=== PATIENT | male | born 1955 | race Caucasian/White ===

== ENCOUNTER 2017-11-30 16:46 | Emergency (ER) | payer OTHER ==
[~2017-11-30] VITALS: Wt 97.5 kg
[~2017-11-30 16:46] MED LIST: 'PARAFON FORTE500 M1 PO; NAPROSYN500 MG PO
[2017-11-30] MEDS ORDERED: LIPITOR20 MG PO (17:24)
[2017-11-30 17:25] LABS: BASO % 0.5 % (0.0-1.0); EOS # 0.2 10*3/uL (0.0-0.4); HEMATOCRIT 54.8 % (42.0-52.0); LYMPH # 1.5 10*3/uL (1.3-4.4); LYMPH % 17.5 % (27.0-41.0); MEAN CELL VOLUME 91.5 fl (80.0-94.0); MEAN CORPUSCULAR HGB 30.1 pg (27.0-31.0); MEAN CORPUSCULAR HGB CONC 32.8 g/dl (33.0-37.0); MEAN PLATELET VOLUME 10.2 fl (9.6-12.3); MONO % 11.8 % (3.0-9.0); NEUT # 5.7 10*3/uL (2.3-7.9); NEUT % 67.8 % (47.0-73.0); PLATELET COUNT AUTOMATED 177 10*3/uL (130-400); RED BLOOD COUNT 5.99 10*6/uL (4.50-5.90); RED CELL DISTRI WIDTH 14.5 % (0-14.5); WHITE BLOOD COUNT 8.4 10*3/uL (4.8-10.8)
[2017-11-30] MEDS ORDERED: SPIRIVA RESPIMAT4 GM INH (17:25)
[2017-11-30] MEDS ORDERED: VIAGRA50 MG PO (17:25)
[2017-11-30] MEDS ORDERED: CYMBALTA60 MG PO (17:25)
[2017-11-30] MEDS ORDERED: BUSPAR5 MG PO (17:26)
[2017-11-30 17:40] LABS: TROPONIN I 0.018 ng/ml (<0.045)
[2017-11-30 18:11] LABS: ALBUMIN 3.7 gm/dl (3.1-4.5); ALKALINE PHOSPHATASE 74 U/L (45-117); BUN 19 mg/dl (7-24); CHLORIDE 98 mmol/L (98-107); CREATININE 0.83 mg/dL (0.70-1.30); POTASSIUM 4.6 mmol/L (3.5-5.1); SGOT/AST 20 IU/L (3-35); SGPT/ALT 26 U/L (12-78); SODIUM 139 mmol/L (136-145); TOTAL PROTEIN 6.8 gm/dL (6.4-8.2)
== END 2017-11-30 18:27 | disposition left against medical advice (07) ==
LOC: ED 16:46
PROVIDERS: Emergency Medicine
DX: G89.29 Other chronic pain (principal); M54.9 Dorsalgia, unspecified; I49.9 Cardiac arrhythmia, unspecified; R55 Syncope and collapse; J44.9 Chronic obstructive pulmonary disease, unspecified; F17.200 Nicotine dependence, unspecified, uncomplicated; Z88.0 Allergy status to penicillin; Z79.899 Other long term (current) drug therapy

== ENCOUNTER 2018-03-18 14:46 | Inpatient (IN) | payer OTHER ==
[~2018-03-18] VITALS: Ht 175.3 cm; Wt 103.4 kg
[2018-03-18] VITALS (9 sets, daily range): BP systolic 100–136; BP diastolic 50–78
--- NOTE | ~2018-03-18 | PR ---
[place], [place] PROGRESS NOTE NAME: SAADIA COSME UNIT #: [id number] ROOM: 518 DOCTOR: GENARO WEISS MD BIRTHDATE: [birth year] DOS: 03/21/2018 SUBJECTIVE: The patient was seen at his bedside today 03/21/2018 for followup of acute respiratory failure and pulmonary emboli with elevated troponin levels. He states that he feels well and is ready to go home, but he is still showing signs of respiratory failure. Blood gas obtained on 03/19/2018 showed a pCO2 of 62 with a pH of 7.37 indicating chronic respiratory acidosis with compensation. He denies any chest pain now and is breathing easily with oxygen supplementation. PHYSICAL EXAMINATION: VITAL SIGNS: Today, his pulse is 94 and regular, blood pressure is 147/90. He is afebrile. NECK: Supple. I did not see any jugular distention. Carotids are full. LUNGS: Respirations are unlabored at rest. He has decreased breath sounds at the bases with a few crackles at the right base. He has no presacral edema. HEART: His heart has a regular rhythm with an S4 gallop. The PMI could not be felt. ABDOMEN: Obese, but otherwise benign. EXTREMITIES: Showed 1+ edema bilaterally. He does have venous stasis changes bilaterally as well. IMPRESSION: 1. Bilateral pulmonary emboli. The patient is very sedentary and this is probably the cause for this. He may also have a coagulopathy. 2. Chronic obstructive pulmonary disease with respiratory failure. 3. Ongoing cigarette abuse. 4. Venous stasis disease of the legs. PLAN: We will review his echocardiogram when it is available later today and make further recommendations at that time. He may require diuresis. He does appear to be in somewhat of a positive fluid balance. Because of his clinical appearance, we will give him little Lasix today and continue to follow his examination. I thank the hospitalist physicians for asking our advice regarding his care. [place], [place] PROGRESS NOTE NAME: SAADIA COSME UNIT #: [id number] ROOM: 518 DOCTOR: GENARO WEISS MD BIRTHDATE: [birth year] EGNARO WEISS MD CM:PNTRANS [id number] GENARO WEISS MD 03/21/18 1030 interface
--- NOTE | ~2018-03-18 | CON ---
[place], [place] REPORT OF CONSULTATION NAME: SAADIA COSME [facility] #: [id number] UNIT #: [id number] ROOM: 518 DOCTOR: RYLIE KNIGHT MD BIRTHDATE: [birth year] DOS: 03/19/2018 PULMONARY CONSULTATION AND EVALUATION AND MANAGEMENT CONSULTATION REQUESTED BY: Hospitalist Services. REASON FOR CONSULTATION: To assess the patient for acute respiratory symptom. HISTORY OF PRESENT ILLNESS: This is a 62-year-old white male who presented to the Emergency Room as the patient has been sent to the hospital from the [facility]. He was noted with oxygen desaturation with saturation 83%, brought to the hospital by the EMS. The patient has been noted with chest congestion, coughing, and wheezing with current symptom. Symptoms have been noted for the past several days and now resolved. He does not have any symptoms of chest pain, which was noted acute. He has been noted with ulcer on his foot, which has been also treated. The patient has been initially admitted to the Intensive Care Unit, later on transferred today to the medical floor. REVIEW OF SYSTEMS: CONSTITUTIONAL: Fatigue and tiredness noted and symptoms of fever or chills. EYES: Denies any burning, redness, or tenderness. EARS, NOSE, THROAT: Denies sore throat, hoarseness, otalgia, postnasal drainage. CARDIOVASCULAR: Denies anginal pain, edema, pain in lower extremity. GASTROINTESTINAL: Dysphagia, nausea, vomiting, diarrhea, abdominal pain, hematemesis, melena, or hematochezia. GENITOURINARY: No dysuria, suprapubic pain, hematuria. MUSCULOSKELETAL: No acute joint pain, redness, or tenderness. CENTRAL NERVOUS SYSTEM: Denies diplopia or syncopal episodes. Remaining systems were reviewed, they were noted all negative. PAST MEDICAL HISTORY: Reported as history of; 2. COPD. 3. Chronic heavy nicotine abuse up to 4 packs, currently smoking about one and half pack of cigarettes per day. 4. Moderate obesity. 5. Intervertebral disk disease for the patient and back pain. 6. History of syncopal episode previously. 7. Left-sided sciatic pain. 8. Ankle ulcer for the patient in the left side as well for several weeks. SOCIAL HISTORY: The patient is , has no children, lives at home. Smoking started at teenager 4 pack of cigarettes per day. Currently smoking one and half pack of cigarettes per day. Denies history of alcohol use or any illicit drugs. PAST SURGICAL HISTORY: Reported surgery of the left knee. FAMILY HISTORY: Unknown. [place], [place] REPORT OF CONSULTATION NAME: SAADIA COSME UNIT #: [id number] ROOM: 518 DOCTOR: CHRISSIE KNIGHT MDM BIRTHDATE: [birth year] HOME MEDICATIONS: Listed use of amitriptyline, aspirin, Lipitor, Cymbalta, Viagra, Spiriva Respimat, and other p.r.n. medications, home use. DRUG ALLERGY HISTORY: ALLERGY TO PENICILLINS. PHYSICAL EXAMINATION: GENERAL: This is a 62-year-old male who was currently noted awake and alert without acute distress. Height of 5 feet 9 inches, weight of 217 pounds, BMI 32. VITAL SIGNS: Normal temperature since admission last 24 hours, respiratory rate 16 to 24, heart rate 82 to 77, blood pressure 130/92-103/65. Pulse oxygen saturation of the patient was noted on a 10-day tried for the nasal cannula 95% at rest on room air at 83% saturation of oxygen. HEENT: Examination shows head was atraumatic. Eyes nonicterus. NECK: Supple. CARDIOVASCULAR: S1, S2 is audible. LUNGS: Noted with expiratory wheezing at the present time. There were no crackles. ABDOMEN: Soft, nontender. Moderate obesity. EXTREMITIES: The patient noted with edema. Visible skin, no lesions or rashes. Ulcer of the left ankle was noted previously. CENTRAL NERVOUS SYSTEM: Cranial nerves 2-12 intact. MUSCULOSKELETAL: Without any acute deformities. LABORATORY DATA: The CBC for this patient that was done on admission for the patient on 03/18/2018 essentially noted as normal CBC. The CMP of the patient that was done on 03/18/2018 at admission glucose 122, BUN and creatinine normal, sodium 135, and troponin 0.353. 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 CBC done this morning remains normal. ESR normal today at 4.0. Arterial blood gas done last evening, pH of 7.35, pCO2 of 62, and pO2 of 111. BMP this morning, BUN normal and creatinine was normal. CO2 36 and chloride of 96. PT/PTT were normal. Arterial blood gas repeated this morning, pH of 7.37, pCO2 64, 8 liters high flow nasal cannula. CBC this morning noted with hemoglobin 16.6 and 55.3, and platelet count 222,000. X-ray of the left ankle was also done for the patient noted no acute fracture. The CTA of the chest does not show evidence of pulmonary embolism. The patient was noted with area of scarring and basilar small atelectasis of the lower lungs bilaterally. There were no visible pulmonary nodules. CT scan, in addition, was also reported with findings of old fracture in the right 11th rib and acute fracture was noted at the right posterior portion of the 11th rib. The CT of the chest does show evidence of bilateral small pulmonary embolism. IMPRESSION: 1. Noted with severe acute hypoxic respiratory failure as a result of acute bilateral pulmonary embolism. 2. Ununited right 11th rib fracture, significance unknown. The patient does have symptoms of chest pain. [place], [place] REPORT OF CONSULTATION NAME: SAADIA COSME Serafin UNIT #: [id number] ROOM: 518 DOCTOR: MARIA DE JESUS KELLOGG MD,[facility] BIRTHDATE: [birth year] 3. Chronic obesity as well. 4. Acute exacerbation of chronic obstructive pulmonary disease as well was noted with concomitant current symptoms. 5. History of long-term tobacco use. 6. Evidence of basilar area of atelectasis, pneumonia cannot be completely excluded, but appeared to be less likely. 7. Elevation of hemoglobin and hematocrit, suggestive of probably chronic hypoxic component for the patient with polycythemia secondary to chronic hypoxia. 8. Strong suspicion of obstructive sleep apnea disorder. Current body habitus of the patient and polycythemia would be considered and excluded. 9. The patient was also noted with long-term ulcer, which has been currently investigated by the podiatry services. PLAN OF MANAGEMENT: The patient had been getting Solu-Medrol 40 mg q. 8 hours, that will be continued. Bronchodilator will be continued. Therapeutic Lovenox has been used for this patient 100 mg b.i.d. for the management of acute pulmonary embolism. BiPAP was also ordered for the patient be used p.r.n. during the day and continue at nighttime. Oxygen supplementation at that time for the patient to be given to maintain pulse ox at 92% greater. Bronchodilators will be given every 4 hours. The patient was also ordered the nicotine placement patches as well to overcome the nicotine withdrawal. Sputum for Gram stain, culture, could be obtained as well. Switching the patient with additional anticoagulation in future would be decided upon stability and improvement in the respiratory failure at this time. Subcutaneous Lovenox could be continued. Other supportive therapy and plan of management already in progress to be continued. Usual care. Titrate oxygen supplementation and maintain pulse ox saturation 92% or greater. Supportive care, other therapy, and plan of management and treatments. Tobacco cessation has been discussed with the patient in detail. The patient has been taking Spiriva inhaler from home, which were noted nonformulary, at this time not available in the hospital. He will be ordered Dulera 200 mcg as 2 inhalations b.i.d. instead. The dose of Solu-Medrol will be gradually decreased based on progression of the illness. The hypercoagulability workup will be ordered as well. Thanks for allowing me to participate in the care of this patient. RYLIE PRETTY MD CM:CONSTR:REPORT OF CONSULTATION 2149 03/20/18 0435 interface
--- NOTE | ~2018-03-18 | PR ---
[place], [place] PROGRESS NOTE [id number] UNIT #: [id number] ROOM: 518 DOCTOR: MARIA DE JESUS KELLOGG MD,RYLIE BIRTHDATE: [birth year] DOS: 03/24/2018 SUBJECTIVE: He has been noted comfortable sitting on the chair this morning. He has used the BiPAP last night. Denies symptoms of chest pain or any hemoptysis. OBJECTIVE: VITAL SIGNS: For the patient, which has been recorded showed the temperature noted normal, respiratory rate 20, heart rate 83, blood pressure ____. Pulse oxygen saturation on 5 L nasal cannula 90-94% saturation. HEENT: Chronic obesity. Head was atraumatic. Eyes nonicterus. CARDIOVASCULAR: S1, S2 is audible. LUNGS: The patient was noted without any wheezing or crackles. The breaths are noted mildly decreased bilaterally. ABDOMEN: Soft and nontender with obesity. EXTREMITIES: Without any acute edema. IMPRESSION: 1. The patient with gradual slow resolution improvement in the acute severe hypoxic respiratory failure. 2. Acute exacerbation of chronic obstructive pulmonary disease and pulmonary embolism. 3. Known obstructive sleep apnea disorder use of CPAP or BiPAP at home. PLAN OF MANAGEMENT: Reduce the Solu-Medrol dose to 40 mg daily. Titrate oxygen supplementation to maintain saturation of 90% or greater. Usual care. Other supportive therapy, plan of management, and care plan. Additional treatment changes to be made for this patient based on the progression of the illness. RYLIE PRETTY MD CM:PNTRANS [id number] [id number] RYLIE KELLOGG MD 03/24/18 1527 interface
--- NOTE | ~2018-03-18 | PR ---
[place], [place] PROGRESS NOTE NAME: SAADIA COSME [facility] #: [id number] UNIT #: [id number] ROOM: 518 DOCTOR: GENARO WEISS MD BIRTHDATE: [birth year] DOS: 03/20/2018 SUBJECTIVE: The patient was seen at his bedside today 03/20/2018 for followup of his dyspnea and chest pain. He presented to the hospital with hypoxemia and was found to have an elevated troponin level at 0.353. In addition, however, he did have an elevated D-dimer, lower extremity venous ultrasound was negative, but CAT scan did show bilateral pulmonary emboli. He is being treated with Lovenox in full dose for management of his pulmonary emboli. The patient states that he is breathing better today and is feeling better. He is anxious to move around more and would like to take a shower. He denies any lightheadedness or syncope. Denies any orthopnea or PND. PHYSICAL EXAMINATION: VITAL SIGNS: Pulse is 84 and regular, blood pressure 128/72. He is afebrile. He weighs 98.5 kilograms. HEENT: Normocephalic and atraumatic. Extraocular muscles are intact. Sclerae are clear. Pupils are equal, round and react to light. The oral mucosa is moist. Tongue is midline. NECK: Supple. He has no jugular distention. Carotids are full. I heard no bruits. He had no neck or supraclavicular masses. LUNGS: Respirations are unlabored. His chest is clear to auscultation and percussion. He had no presacral edema or chest wall tenderness. HEART: Had a regular rhythm with an S4 gallop, but no S3. ABDOMEN: Soft and normally active. EXTREMITIES: Showed venous stasis changes, but no edema. IMPRESSION: 1. Bilateral pulmonary emboli. The patient is very sedentary and this is probably the cause for his emboli. 2. Chronic obstructive pulmonary disease. 3. Ongoing cigarette abuse. 4. Venous stasis disease of the legs. PLAN: No other cardiac management changes are indicated at this time. An echocardiogram is scheduled for tomorrow and we will review that when it is available. Further recommendations may be forthcoming depending upon the results of the echo. I thank the hospitalist physicians for asking our advice regarding his care. From my perspective, he may shower and may remove his monitor to do so. [place], [place] PROGRESS NOTE NAME: SAADIA COSME Serafin UNIT #: [id number] ROOM: 518 DOCTOR: GENARO WEISS MD BIRTHDATE: [birth year] GENARO WEISS MD CM:PNTRANS 22 [phone] GENARO WEISS MD 03/20/181932 interface
--- NOTE | ~2018-03-18 | CON ---
[place], [place] REPORT OF CON[facility]ULTATION [id number] UN[facility] #: [id number] ROOM: 518 DOCTOR: NGOZI SIU DPM BIRTHDATE: [birth year] DOS: 03/19/2018 SUBJECTIVE: The patient is a 62-year-old male with chief complaint of an ulcer on the inside of the left ankle, which has been present for several weeks. The patient has had previous cellulitis, redness of the legs, which he is treated for over a year with topical creams. PAST MEDICAL HISTORY: Arrhythmia, chronic back pain, COPD with hypoxia, left-sided sciatica, syncope episode, tobacco abuse counseling. PAST SURGICAL HISTORY: History of left knee surgery. SOCIAL HISTORY: Smoking a pack of cigarettes daily times 15 years. Denies illicit drug use or alcohol. ALLERGIES: PENICILLIN. PHYSICAL EXAMINATION: EXTREMITIES: Lower extremity examination: Pedal pulses diminished bilateral, decreased hair growth bilateral, venous insufficiency bilateral with venous stasis dermatitis noted. There is an ulceration to the medial left ankle, which is full thickness approximately 1 cm diameter. There are no signs of infection or sinus tract, appears consistent with venous ulceration. The patient had a venous Doppler, which was negative for DVT, bilateral. There is a Mcmahon cyst noted right side. ASSESSMENT: Ulceration medial left ankle, venous insufficiency bilateral lower extremity, peripheral vascular disease. PLAN: Evaluation and management. Ordered Bactroban and gauze dressing daily. Ordered arterial Doppler bilateral lower extremity. Also ordered radiographs of the left ankle, three views and the patient will be seen after the testing has been performed. NGOZI SIU DPM CM:CONSTR:REPORT OF CONSULTATION 1132 03/19/18 1235 interface
--- NOTE | ~2018-03-18 | PR ---
[place], [place] PROGRESS NOTE NAME: SAADIA COSME [facility] #: [id number] UNIT #: [id number] ROOM: 518 DOCTOR: LALO ABDUL DPM BIRTHDATE: [birth year] DOS: 03/21/2018 SUBJECTIVE: The patient is seen today for followup of ulceration of his left medial ankle. He states he is feeling well. He thinks he is doing much better. He states the redness that he had on his has gone and really has no complaints at this time. OBJECTIVE: Neurovascular status is unchanged. Diminished pedal pulses are seen. Medial side of the left ankle area has a dry area of dry skin with minimal open area. No erythema, drainage or malodor. No tenderness noted to palpation. Overall appears to be resolving nicely at this time. ASSESSMENT: Improving ulcer of left medial ankle, edema bilaterally, venous insufficiencies. PLAN: I am continuing with local wound care. The wound has almost completely healed. He is doing well at this time. We will follow him up tomorrow if still in the hospital. LALO ABDUL DPM CM:BRAEDEN [id number] [id number] LALO ABDUL DPM 03/21/18 1248 interface
--- NOTE | ~2018-03-18 | CON ---
[place], [place] REPORT OF CONSULTATION NAME: SAADIA COSME [facility] #: [id number] UNIT #: [id number] ROOM: 518 DOCTOR: GENARO WEISS MD BIRTHDATE: [birth year] DOS: 03/19/2018 REASON FOR CONSULTATION: Elevated troponin. HISTORY OF PRESENT ILLNESS: The patient is a 62-year-old man who presented to the hospital after being seen at the [facility]. He was complaining of dyspnea and found to be hypoxemic. Oxygen saturation on room air was 83%. He denied any chest pain, but later did admit that his right lateral chest hurt when he took a deep breath. He thought it was because he had fallen and bruised a rib. In the hospital, his troponin was noted to be elevated at 0.0353. Subsequent troponin levels are 0.364 and 0.356. He did not show a typical rise and fall pattern that would suggest an acute myocardial infarction, but does have a troponin elevation suggesting myocardial injury. Cardiology was therefore asked to see him. In addition, he did have a CT angiogram of the chest, which showed evidence of bilateral pulmonary emboli. He was also found to have an acute right posterior 11th rib fracture. PAST MEDICAL HISTORY: Includes 1. Long-term and ongoing cigarette abuse. 2. Obstructive lung disease with hypoxemia. 3. Chronic back pain due to degenerative disk disease. 4. History of syncopal episodes. 5. History of left knee surgery. 6. No previous history of heart attack, stroke, deep venous thrombosis or pulmonary embolism. MEDICATIONS: Prior to admission included Spiriva 2 puffs daily, amitriptyline 10 mg at bedtime, aspirin 81 mg daily, atorvastatin 40 mg at bedtime, docusate 100 mg b.i.d., duloxetine 60 mg b.i.d. and sildenafil 50 mg daily as needed. ALLERGIES: The patient has an allergy to PENICILLINS. REVIEW OF SYSTEMS: The patient denies diplopia or loss of vision. He denies focal weakness. He denies lightheadedness or syncope. He denies orthopnea or PND. He denies fevers, chills or sweats. He does have right-sided pleuritic chest pain and tenderness in his right lateral ribs. He denies cough or hematemesis. He does have chronic dyspnea. He denies nausea or vomiting. He denies change in bowel or bladder habits and denies blood in his stools or urine. He denies nosebleeds or bleeding from the mouth. He denies any peripheral edema. He does have an ulceration on his medial left ankle consistent with venous insufficiency. Peripheral pulses are diminished in the feet. LABORATORY DATA: I reviewed his electrocardiogram and it does not show any acute ST elevations. IMPRESSIONS: 1. Bilateral pulmonary embolism. The patient is very sedentary and this is the probable cause of the pulmonary emboli. This is despite the fact that he does not have demonstrable deep venous thrombosis. [place], [place] REPORT OF CONSULTATION NAME: SAADIA COSME UNIT #: [id number] ROOM: 518 DOCTOR: GENARO WEISS MD BIRTHDATE: [birth year] 2. Chronic obstructive pulmonary disease. 3. Ongoing cigarette abuse. 4. Venous stasis disease of the legs. PLAN: I agree with treating him with enoxaparin in high dose for his acute pulmonary embolism. We will be getting an echocardiogram within the next day or two to assess left ventricular size, wall motion and function. If he does have wall motion abnormalities, then a pharmacologic stress test should probably be done subsequently. Otherwise, I think that he can be switched from the Lovenox to rivaroxaban 15 mg twice a day p.o. and this can be done at any time. We will follow him with his other physicians in the hospital and I thank the hospitalist physicians for asking our advice regarding his care. GENARO WEISS MD CM:CONSTR:REPORT OF CONSULTATION 19 03/19/182153 interface
--- NOTE | ~2018-03-18 | PR ---
[place], [place] PROGRESS NOTE NAME: SAADIA COSME UNIT #: [id number] ROOM: 518 DOCTOR: RYLIE KNIGHT MD BIRTHDATE: [birth year] DOS: 03/22/2018 SUBJECTIVE: The patient noted comfortable at this time, resting, sitting on the side of the bed, still require significant amount of oxygen supplementation. Denies any acute shortness of breath at rest. He does have mild cough without sputum expectoration. Denies symptoms of chest pain or hemoptysis. OBJECTIVE: VITAL SIGNS: For the patient which were recorded showed the temperature noted as normal. The respiratory rate of the patient recorded as 20, heart rate 86, blood pressure 120/81. The pulse oxygen saturation on 7 liters high flow nasal cannula 94% saturation at rest. The BiPAP 40% oxygen 98% saturation. HEENT: Chronic obesity. NECK: Short and obese. CARDIOVASCULAR: S1, S2 audible. LUNGS: Generally decreased breath sounds in the lungs bilaterally. ABDOMEN: Soft, nontender. Bowel sounds present. EXTREMITIES: Without any acute edema. LABORATORY DATA: BMP today, normal BUN and creatinine, sodium 135. CBC of the patient noted as normal hemoglobin, hematocrit, and platelets and the remaining testing. The chest x-ray, 2-view, which was done yesterday was noted with cardiomegaly with small infiltration noted/atelectasis in the lower lungs. IMPRESSION: 1. The patient currently noted with severe acute hypoxic respiratory failure with acute pulmonary embolism. 2. Acute exacerbation of chronic obstructive pulmonary disease as well. 3. Small basilar area of atelectasis remains stable. 4. Suspected obstructive sleep apnea disorder. PLAN OF MANAGEMENT: The chest x-ray of the patient has been noted stable. Continue oxygen supplementation, bronchodilators, oxygen supplementation, use the BiPAP as previously ordered without any changes. Usual care, the plan of therapy and management and care. [place], [place] PROGRESS NOTE NAME: SAADIA COSME UNIT #: [id number] ROOM: 518 DOCTOR: RYLIE KNIGHT MD BIRTHDATE: [birth year] RYLIE PRETTY MD CM:PNTRANS 1224 1534 RYLIE KELLOGG MD 03/22/18 1533 interface
--- NOTE | ~2018-03-18 | PR ---
[place], [place] PROGRESS NOTE NAME: SAADIA COSME UNIT #: [id number] ROOM: 518 DOCTOR: RYLIE KNIGHT MD BIRTHDATE: [birth year] DOS: 03/21/2018 SUBJECTIVE: The patient is noted comfortable at this time without any acute distress. He has not been noted with any symptoms of chest pain or any abdominal pain. Shortness of breath of the patient has been improving using oxygen supplementation up to 6 liters nasal cannula. The patient used the BiPAP 3 hours last night. He had not been reporting any symptoms of acute chest pain. This morning, the patient was seen and examined, sitting on side of the bed. OBJECTIVE: VITAL SIGNS: Normal temperature, respiratory rate 20, heart rate 94, blood pressure 140/90. Pulse oxygen saturation of the patient was recorded as 94% saturation on 8 liters nasal cannula earlier. HEENT: Chronic severe obesity. NECK: Supple. CARDIOVASCULAR: S1, S2 audible. LUNGS: Noted with moderate general reduction in breath sounds, still noted bilaterally. ABDOMEN: Soft, nontender with moderate obesity. EXTREMITIES: Without any acute edema. IMPRESSION: 1. The patient with acute hypoxic respiratory failure with acute bilateral pulmonary embolism. 2. Rib fracture of 11th rib noted on this admission as well. 3. Chronic obesity. 4. Acute exacerbation of chronic obstructive pulmonary disease as well. 5. History of long-term tobacco use. 6. Basilar areas of atelectasis. 7. Suspicion of obstructive sleep apnea disorder. PLAN OF TREATMENT: Continuation of the anticoagulation of the patient at this time with bronchodilators and oxygen supplementation. Solu-Medrol of the patient has been continued on 40 mg q. 8 hours. The dose could be decreased to b.i.d. dosing. Repeat a chest x-ray to reassess the progression of the current pneumonia and other abnormalities. Continue nicotine replacement patches. Continuation of the bronchodilators. [place], [place] PROGRESS NOTE NAME: SAADIA COSME UNIT #: [id number] ROOM: 518 DOCTOR: RYLIE KNIGHT MD BIRTHDATE: [birth year] RYLIE AZIZ, MD CM:PNTRANS [id number] RYLIE KELLOGG MD 03/21/18 [id number] interface
--- NOTE | ~2018-03-18 | PR ---
[place], [place] PROGRESS NOTE NAME: SAADIA COSME UNIT #: [id number] ROOM: 518 DOCTOR: RYLIE KNIGHT MD BIRTHDATE: [birth year] DOS: 03/23/2018 SUBJECTIVE: The patient is noted to be comfortable at this time, resting on the bed. He has been noted without any acute respiratory distress at this time. The hypercoagulable workup of the patient partially was available. He required oxygen supplementation high flow nasal cannula. The BiPAP was used by the patient at night. OBJECTIVE: VITAL SIGNS: This morning, normal temperature, respiratory rate 20, heart rate 92, blood pressure 101/80. Pulse oxygen saturation of the patient 5 liter nasal cannula 92% saturation. HEENT: Chronic severe obesity. NECK: Supple, short and obese. CARDIOVASCULAR: S1, S2 is audible. LUNGS: For this patient was noted as moderate generalized reduced air entry of the lungs bilaterally. Scattered expiratory wheezing, no crackles. ABDOMEN: Soft, moderately obese, bowel sounds present. EXTREMITIES: Without edema. LABORATORY DATA: BMP for the patient noted are normal BUN and creatinine. CO2 39. A cardiolipin antibody was elevated. Lupus anticoagulant for this patient, which was done and noted as negative. Remaining hypercoagulable workup was pending. IMPRESSION: 1. The patient has severe acute hypoxic respiratory failure. 2. Acute pulmonary embolism as well as exacerbation of chronic obstructive pulmonary disease. Gradually reduced oxygen requirement has been noted. 3. Morbid obesity. The patient with history of obstructive sleep apnea disorder. 4. Hypercarbia secondary to chronic obstructive pulmonary disease. PLAN OF TREATMENT: No changes in the plan of therapy at this time would be necessary. Continue current plan of management previously ongoing. Usual care, other supportive plan of management and therapies. [place], [place] PROGRESS NOTE NAME: SAADIA COSME UNIT #: [id number] ROOM: 518 DOCTOR: RYLIE KNIGHT MD BIRTHDATE: [birth year] RYLIE PRETTY MD CM:PNTRANS [id number] RYLIE KELLOGG MD 03/23/18 1456 interface
[~2018-03-18 14:46] MED LIST changes: +BUSPAR5 MG PO; +CYMBALTA60 MG PO; +LIPITOR20 MG PO; +SPIRIVA RESPIMAT4 GM INH; +VIAGRA50 MG PO
[2018-03-18 15:05] LABS: ABG BASE EXCESS 5.5 mmol/L (-2.0-2.0); ABG HCO3 31.6 mmol/l (22-26); ARTERIAL BLOOD GAS PCO2 53.5 mmHg (35-45); ARTERIAL BLOOD GAS PH 7.389 (7.35-7.45); ARTERIAL BLOOD GAS PO2 67.8 mmHg (80-90)
[2018-03-18 16:05] LABS: ACT PARTIAL THROMBO TIME 23.5 SECONDS (20.8-31.5)
[2018-03-18 16:06] LABS: ALBUMIN 2.8 gm/dl (3.1-4.5); ALKALINE PHOSPHATASE 91 U/L (45-117); BUN 12 mg/dl (7-24); CHLORIDE 100 mmol/L (98-107); POTASSIUM 4.1 mmol/L (3.5-5.1); SGOT/AST 21 IU/L (3-35); SGPT/ALT 22 U/L (12-78); SODIUM 135 mmol/L (136-145); TOTAL PROTEIN 6.7 gm/dL (6.4-8.2)
[2018-03-18 16:15] LABS: TROPONIN I 0.353 ng/ml (<0.045)
[2018-03-18 16:42] LABS: BASO % 0.3 % (0.0-1.0); EOS # 0.2 10*3/uL (0.0-0.4); EOS % 1.7 % (1.0-4.0); HEMATOCRIT 50.5 % (42.0-52.0); HEMOGLOBIN 15.6 g/dl (14.0-18.0); LYMPH # 1.2 10*3/uL (1.3-4.4); LYMPH % 14.1 % (27.0-41.0); MEAN CELL VOLUME 89.7 fl (80.0-94.0); MEAN CORPUSCULAR HGB 27.7 pg (27.0-31.0); MEAN CORPUSCULAR HGB CONC 30.9 g/dl (33.0-37.0); MEAN PLATELET VOLUME 10.3 fl (9.6-12.3); MONO # 1.1 10*3/uL (0.1-1.0); MONO % 13.2 % (3.0-9.0); NEUT # 6.1 10*3/uL (2.3-7.9); NEUT % 70.4 % (47.0-73.0); PLATELET COUNT AUTOMATED 230 10*3/uL (130-400); RED BLOOD COUNT 5.63 10*6/uL (4.50-5.90); RED CELL DISTRI WIDTH 15.5 % (0-14.5); WHITE BLOOD COUNT 8.6 10*3/uL (4.8-10.8)
[2018-03-18 17:41] LABS: BILIRUBIN NEGATIVE (NEGATIVE); BLOOD NEGATIVE (NEGATIVE); CLARITY CLEAR (CLEAR); COLOR YELLOW (YELLOW); GLUCOSE NEGATIVE (NEGATIVE); KETONE NEGATIVE (NEGATIVE); LEUKO ESTERASE NEGATIVE (NEGATIVE); NITRITE NEGATIVE (NEGATIVE); PH 7.5 (5.0-9.0); SPECIFIC GRAVITY 1.015 (1.005-1.030); UROBILINOGEN 0.2 E.U./dl (0.2-1.0)
[2018-03-18 18:03] LABS: BACTERIA TRACE; MUCOUS TRACE; WBC 0-2 wbc/hpf (0-5)
[2018-03-18 18:04] LABS: EPITHELIAL CELLS 0-2
[2018-03-18] MEDS ORDERED: DOCUSATE SODIU100 M2 PO (21:33)
[2018-03-18] MEDS ORDERED: ASPIRIN ADULT L81 M1 PO (21:36)
[2018-03-18 21:51] LABS: ABG BASE EXCESS 6.7 mmol/L (-2.0-2.0); ABG HCO3 34.3 mmol/l (22-26); ABG O2 SATURATION 97.9 % (95-97); ARTERIAL BLOOD GAS PCO2 62.1 mmHg (35-45); ARTERIAL BLOOD GAS PH 7.359 (7.35-7.45)
[2018-03-18] MEDS ORDERED: AMITRIPTYLINE10 MG PO (22:03)
[2018-03-19 00:04] VITALS: BP 130/92
[2018-03-19 04:00] VITALS: BP 115/67
[2018-03-19 05:19] LABS: HEMATOCRIT 55.3 % (42.0-52.0); HEMOGLOBIN 16.6 g/dl (14.0-18.0); MEAN CELL VOLUME 90.8 fl (80.0-94.0); MEAN CORPUSCULAR HGB 27.3 pg (27.0-31.0); MEAN PLATELET VOLUME 10.3 fl (9.6-12.3); PLATELET COUNT AUTOMATED 222 10*3/uL (130-400); RED BLOOD COUNT 6.09 10*6/uL (4.50-5.90); RED CELL DISTRI WIDTH 15.7 % (0-14.5); WHITE BLOOD COUNT 7.4 10*3/uL (4.8-10.8)
[2018-03-19 05:40] LABS: BUN 12 mg/dl (7-24); CHLORIDE 96 mmol/L (98-107); CHOLESTEROL 225 mg/dL (<200); CREATININE 0.69 mg/dL (0.70-1.30); HDL CHOLESTEROL 47 mg/dl (40-60); LDL CHOLESTEROL 160 mg/dL (9-159); PHOSPHOROUS 4.8 mg/dL (2.5-4.9); POTASSIUM 4.7 mmol/L (3.5-5.1); SODIUM 136 mmol/L (136-145); TRIGLYCERIDES 90 mg/dl (<150); VLDL CHOLESTEROL 18 mg/dL (6-40)
[2018-03-19 06:07] LABS: ACT PARTIAL THROMBO TIME 25.4 SECONDS (20.8-31.5)
[2018-03-19 06:56] LABS: VITAMIN D, 25-HYDROXY 9.1 ng/mL (30-100)
[2018-03-19 07:55] LABS: ABG BASE EXCESS 7.8 mmol/L (-2.0-2.0); ABG HCO3 35.2 mmol/l (22-26); ARTERIAL BLOOD GAS PCO2 62.1 mmHg (35-45); ARTERIAL BLOOD GAS PH 7.372 (7.35-7.45); ARTERIAL BLOOD GAS PO2 64.4 mmHg (80-90)
[2018-03-19 07:59] LABS: PLATELET SUFFICIENCY NORMAL (NORMAL); TOTAL CELLS COUNTED 100 #CELLS
[2018-03-19 08:00] VITALS: BP 127/73
[2018-03-19 12:00] VITALS: BP 103/65
[2018-03-19 16:00] VITALS: BP 109/60
[2018-03-19 20:00] VITALS: BP 118/67
[2018-03-20] VITALS: BP 135/81
[2018-03-20 06:51] LABS: ALBUMIN 2.9 gm/dl (3.1-4.5); ALKALINE PHOSPHATASE 82 U/L (45-117); BUN 13 mg/dl (7-24); CHLORIDE 97 mmol/L (98-107); CREATININE 0.53 mg/dL (0.70-1.30); POTASSIUM 4.4 mmol/L (3.5-5.1); SGOT/AST 15 IU/L (3-35); SGPT/ALT 19 U/L (12-78); SODIUM 135 mmol/L (136-145); TOTAL PROTEIN 6.8 gm/dL (6.4-8.2)
[2018-03-20 06:52] LABS: BASO % 0.1 % (0.0-1.0); HEMATOCRIT 48.9 % (42.0-52.0); HEMOGLOBIN 14.8 g/dl (14.0-18.0); LYMPH # 0.7 10*3/uL (1.3-4.4); LYMPH % 6.9 % (27.0-41.0); MEAN CELL VOLUME 89.4 fl (80.0-94.0); MEAN CORPUSCULAR HGB 27.1 pg (27.0-31.0); MEAN CORPUSCULAR HGB CONC 30.3 g/dl (33.0-37.0); MEAN PLATELET VOLUME 10.4 fl (9.6-12.3); MONO # 0.5 10*3/uL (0.1-1.0); MONO % 5.1 % (3.0-9.0); NEUT # 8.6 10*3/uL (2.3-7.9); NEUT % 87.3 % (47.0-73.0); PLATELET COUNT AUTOMATED 205 10*3/uL (130-400); RED BLOOD COUNT 5.47 10*6/uL (4.50-5.90); RED CELL DISTRI WIDTH 15.1 % (0-14.5); WHITE BLOOD COUNT 9.8 10*3/uL (4.8-10.8)
[2018-03-20 08:00] VITALS: BP 127/83
[2018-03-20 12:00] VITALS: BP 124/72
[2018-03-20 16:00] VITALS: BP 128/72
[2018-03-20 20:00] VITALS: BP 118/66
[2018-03-21] VITALS: BP 126/76
[2018-03-21 01:00] VITALS: BP 164/86
[2018-03-21 05:50] LABS: BUN 14 mg/dl (7-24); CHLORIDE 98 mmol/L (98-107); CREATININE 0.51 mg/dL (0.70-1.30); POTASSIUM 4.5 mmol/L (3.5-5.1); SODIUM 136 mmol/L (136-145)
[2018-03-21 05:53] LABS: VANCOMYCIN TROUGH 9.9 ug/mL (10-20)
[2018-03-21 05:58] LABS: BASO % 0.1 % (0.0-1.0); EOS % 0.2 % (1.0-4.0); HEMATOCRIT 47.7 % (42.0-52.0); HEMOGLOBIN 14.5 g/dl (14.0-18.0); LYMPH # 0.8 10*3/uL (1.3-4.4); LYMPH % 7.2 % (27.0-41.0); MEAN CELL VOLUME 89.2 fl (80.0-94.0); MEAN CORPUSCULAR HGB 27.1 pg (27.0-31.0); MEAN CORPUSCULAR HGB CONC 30.4 g/dl (33.0-37.0); MEAN PLATELET VOLUME 10.3 fl (9.6-12.3); MONO # 0.8 10*3/uL (0.1-1.0); MONO % 7.2 % (3.0-9.0); NEUT # 9.1 10*3/uL (2.3-7.9); NEUT % 84.9 % (47.0-73.0); PLATELET COUNT AUTOMATED 220 10*3/uL (130-400); RED BLOOD COUNT 5.35 10*6/uL (4.50-5.90); RED CELL DISTRI WIDTH 15.2 % (0-14.5); WHITE BLOOD COUNT 10.7 10*3/uL (4.8-10.8)
[2018-03-21 08:00] VITALS: BP 147/90
[2018-03-21 12:00] VITALS: BP 132/81
[2018-03-21 16:00] VITALS: BP 118/56
[2018-03-21 20:00] VITALS: BP 125/87
[2018-03-22] VITALS: BP 110/66
[2018-03-22 06:50] LABS: BASO % 0.2 % (0.0-1.0); EOS % 0.1 % (1.0-4.0); HEMATOCRIT 48.3 % (42.0-52.0); HEMOGLOBIN 14.8 g/dl (14.0-18.0); LYMPH # 1.3 10*3/uL (1.3-4.4); LYMPH % 13.7 % (27.0-41.0); MEAN CORPUSCULAR HGB 27.3 pg (27.0-31.0); MEAN CORPUSCULAR HGB CONC 30.6 g/dl (33.0-37.0); MEAN PLATELET VOLUME 10.3 fl (9.6-12.3); MONO % 10.7 % (3.0-9.0); NEUT # 7.2 10*3/uL (2.3-7.9); NEUT % 74.8 % (47.0-73.0); PLATELET COUNT AUTOMATED 184 10*3/uL (130-400); RED BLOOD COUNT 5.43 10*6/uL (4.50-5.90); RED CELL DISTRI WIDTH 15.3 % (0-14.5); WHITE BLOOD COUNT 9.7 10*3/uL (4.8-10.8)
[2018-03-22 07:20] LABS: BUN 18 mg/dl (7-24); CHLORIDE 93 mmol/L (98-107); POTASSIUM 4.4 mmol/L (3.5-5.1); SODIUM 135 mmol/L (136-145)
[2018-03-22 08:00] VITALS: BP 120/81
[2018-03-22 12:00] VITALS: BP 104/63
[2018-03-22 15:07] LABS: ANTICARDIOLIPIN AB, IGG, QN 92 GPL U/mL (0-14); ANTICARDIOLIPIN AB, IGM, QN 11 MPL U/mL (0-12); CARDIOLIPIN AB IGA 161836 <9 APL U/mL (0-11)
[2018-03-22 16:00] VITALS: BP 107/51
[2018-03-22 16:09] LABS: LUPUS DRVVT 43.5 sec (0.0-47.0); PTT-LA 50.7 sec (0.0-51.9)
[2018-03-22 17:06] LABS: LUPUS REFLEX INTERPRETATION Comment: (.)
[2018-03-22 20:00] VITALS: BP 118/63
[2018-03-23] VITALS: BP 122/69
[2018-03-23 02:07] LABS: ANTI-THROMBIN III ACTIVITY 104 % (75-135); PROTEIN S, FREE 132 % (57-157); PROTEIN S, TOTAL 84 % (60-150)
[2018-03-23 06:03] LABS: BUN 18 mg/dl (7-24); CHLORIDE 95 mmol/L (98-107); CREATININE 0.58 mg/dL (0.70-1.30); POTASSIUM 3.9 mmol/L (3.5-5.1); SODIUM 136 mmol/L (136-145)
[2018-03-23 06:06] LABS: VANCOMYCIN TROUGH 15.4 ug/mL (10-20)
[2018-03-23 06:51] LABS: BASO % 0.3 % (0.0-1.0); EOS % 0.4 % (1.0-4.0); HEMATOCRIT 50.2 % (42.0-52.0); HEMOGLOBIN 15.2 g/dl (14.0-18.0); LYMPH # 1.5 10*3/uL (1.3-4.4); LYMPH % 14.1 % (27.0-41.0); MEAN CELL VOLUME 87.8 fl (80.0-94.0); MEAN CORPUSCULAR HGB 26.6 pg (27.0-31.0); MEAN CORPUSCULAR HGB CONC 30.3 g/dl (33.0-37.0); MEAN PLATELET VOLUME 10.6 fl (9.6-12.3); MONO # 1.2 10*3/uL (0.1-1.0); MONO % 11.3 % (3.0-9.0); NEUT # 7.6 10*3/uL (2.3-7.9); NEUT % 73.6 % (47.0-73.0); PLATELET COUNT AUTOMATED 190 10*3/uL (130-400); RED BLOOD COUNT 5.72 10*6/uL (4.50-5.90); RED CELL DISTRI WIDTH 15.1 % (0-14.5); WHITE BLOOD COUNT 10.3 10*3/uL (4.8-10.8)
[2018-03-23 08:00] VITALS: BP 121/80
[2018-03-23 12:00] VITALS: BP 105/55
[2018-03-23 16:00] VITALS: BP 116/59
[2018-03-23 20:00] VITALS: BP 124/68
[2018-03-24] VITALS: BP 100/43
[2018-03-24 06:50] LABS: BASO % 0.3 % (0.0-1.0); EOS % 0.4 % (1.0-4.0); HEMATOCRIT 50.4 % (42.0-52.0); HEMOGLOBIN 15.7 g/dl (14.0-18.0); LYMPH # 0.8 10*3/uL (1.3-4.4); LYMPH % 8.3 % (27.0-41.0); MEAN CELL VOLUME 87.3 fl (80.0-94.0); MEAN CORPUSCULAR HGB 27.2 pg (27.0-31.0); MEAN CORPUSCULAR HGB CONC 31.2 g/dl (33.0-37.0); MEAN PLATELET VOLUME 10.2 fl (9.6-12.3); MONO # 0.8 10*3/uL (0.1-1.0); MONO % 7.5 % (3.0-9.0); NEUT # 8.4 10*3/uL (2.3-7.9); NEUT % 83.1 % (47.0-73.0); PLATELET COUNT AUTOMATED 193 10*3/uL (130-400); RED BLOOD COUNT 5.77 10*6/uL (4.50-5.90); RED CELL DISTRI WIDTH 15.1 % (0-14.5); WHITE BLOOD COUNT 10.1 10*3/uL (4.8-10.8)
[2018-03-24 07:01] LABS: BUN 17 mg/dl (7-24); CHLORIDE 91 mmol/L (98-107); CREATININE 0.58 mg/dL (0.70-1.30); POTASSIUM 4.3 mmol/L (3.5-5.1); SODIUM 134 mmol/L (136-145)
[2018-03-24 08:21] VITALS: BP 142/81
[2018-03-24 12:00] VITALS: BP 114/58
[2018-03-24] MEDS ORDERED: VITAMIN D5000 UNI1 PO (12:52)
[2018-03-24] MEDS ORDERED: LOPRESSOR25 MG PO (12:52)
[2018-03-24] MEDS ORDERED: SOLU-MEDRO40 MG/1 ML IV (12:52)
[2018-03-24] MEDS ORDERED: FUROSEMIDE40 MG PO (12:52)
[2018-03-24] MEDS ORDERED: XARE15TA PO (12:52)
[2018-03-24 16:00] VITALS: BP 102/62
== END 2018-03-24 16:02 | disposition short-term general hospital (02) | DRG 280 ==
LOC: ED 14:46 → 5E 16:32 → EDHOLD 16:32 → ICCU 17:26 → 5E 03-19 11:50
PROVIDERS: Family Medicine; Internal Medicine; Internal Medicine Critical Care Medicine
PROC: 5A09357 Assistance with Respiratory Ventilation, Less than 24 Consecutive Hours, Continuous Positive Airway Pressure (ICD-10-PCS; principal; 2018-03-18)
PROC: 5A09357 Assistance with Respiratory Ventilation, Less than 24 Consecutive Hours, Continuous Positive Airway Pressure (ICD-10-PCS; 2018-03-19)
PROC: 5A09357 Assistance with Respiratory Ventilation, Less than 24 Consecutive Hours, Continuous Positive Airway Pressure (ICD-10-PCS; 2018-03-21)
PROC: 5A09357 Assistance with Respiratory Ventilation, Less than 24 Consecutive Hours, Continuous Positive Airway Pressure (ICD-10-PCS; 2018-03-22)
PROC: 5A09357 Assistance with Respiratory Ventilation, Less than 24 Consecutive Hours, Continuous Positive Airway Pressure (ICD-10-PCS; 2018-03-23)
DX: I21.4 Non-ST elevation (NSTEMI) myocardial infarction (principal); J96.01 Acute respiratory failure with hypoxia; I26.99 Other pulmonary embolism without acute cor pulmonale; J96.02 Acute respiratory failure with hypercapnia; J44.1 Chronic obstructive pulmonary disease with (acute) exacerbation; L03.116 Cellulitis of left lower limb; L03.115 Cellulitis of right lower limb; L97.929 Non-pressure chronic ulcer of unspecified part of left lower leg with unspecified severity; S22.31XA Fracture of one rib, right side, initial encounter for closed fracture; F17.210 Nicotine dependence, cigarettes, uncomplicated; R73.9 Hyperglycemia, unspecified; G89.29 Other chronic pain; M54.9 Dorsalgia, unspecified; E78.5 Hyperlipidemia, unspecified; F41.9 Anxiety disorder, unspecified; G47.33 Obstructive sleep apnea (adult) (pediatric); I87.2 Venous insufficiency (chronic) (peripheral); I73.9 Peripheral vascular disease, unspecified; E66.8 Other obesity; X58.XXXA Exposure to other specified factors, initial encounter; Y93.89 Activity, other specified; Z79.82 Long term (current) use of aspirin; Z88.0 Allergy status to penicillin; Z79.899 Other long term (current) drug therapy; Z71.6 Tobacco abuse counseling; Y92.89 Other specified places as the place of occurrence of the external cause; Y99.8 Other external cause status; Z68.32 Body mass index [BMI] 32.0-32.9, adult

== ENCOUNTER 2020-03-25 15:31 | Inpatient (IN) | payer OTHER ==
[~2020-03-25] VITALS: Ht 175.3 cm; Wt 93.2 kg
[2020-03-25] VITALS (22 sets, daily range): BP systolic 79–174; BP diastolic 40–97
[~2020-03-25 15:31] MED LIST changes: +AMITRIPTYLINE10 MG PO; +ASPIRIN ADULT L81 M1 PO; +DOCUSATE SODIU100 M2 PO; +FUROSEMIDE40 MG PO; +LOPRESSOR25 MG PO; +SOLU-MEDRO40 MG/1 ML IV; +VITAMIN D5000 UNI1 PO; +XARE15TA PO
[2020-03-25 15:47] LABS: ABG BASE EXCESS 7.5 mmol/L (-2.0-2.0); ARTERIAL BLOOD GAS PH 7.359 (7.35-7.45)
[2020-03-25 16:01] LABS: BASO % 0.5 % (0.0-1.0); EOS # 0.1 10*3/uL (0.0-0.4); EOS % 1.7 % (1.0-4.0); HEMATOCRIT 46.4 % (42.0-52.0); LYMPH % 11.9 % (27.0-41.0); MEAN CELL VOLUME 82.9 fl (80.0-94.0); MEAN CORPUSCULAR HGB 24.3 pg (27.0-31.0); MEAN CORPUSCULAR HGB CONC 29.3 g/dl (33.0-37.0); MONO # 1.2 10*3/uL (0.1-1.0); MONO % 14.6 % (3.0-9.0); NEUT # 5.9 10*3/uL (2.3-7.9); NEUT % 71.1 % (47.0-73.0); PLATELET COUNT AUTOMATED 218 10*3/uL (130-400); WHITE BLOOD COUNT 8.3 10*3/uL (4.8-10.8)
[2020-03-25 16:15] LABS: INTERNATIONAL NORM RATIO 1.5 (2.0-3.5)
[2020-03-25 16:18] LABS: ALBUMIN 2.8 gm/dl (3.1-4.5); ALKALINE PHOSPHATASE 76 U/L (45-117); BUN 12 mg/dl (7-24); CHLORIDE 103 mmol/L (98-107); CREATININE 0.73 mg/dL (0.70-1.30); POTASSIUM 3.8 mmol/L (3.5-5.1); SGOT/AST 19 IU/L (3-35); SGPT/ALT 30 U/L (12-78); SODIUM 143 mmol/L (136-145); TOTAL PROTEIN 6.4 gm/dL (6.4-8.2)
[2020-03-25 20:53] LABS: COLOR YELLOW (YELLOW)
[2020-03-25 20:54] LABS: BACTERIA TRACE; BILIRUBIN NEGATIVE (NEGATIVE); BLOOD NEGATIVE (NEGATIVE); CLARITY CLEAR (CLEAR); GLUCOSE NEGATIVE (NEGATIVE); KETONE NEGATIVE (NEGATIVE); LEUKO ESTERASE NEGATIVE (NEGATIVE); MUCOUS TRACE; NITRITE NEGATIVE (NEGATIVE); RBC 0-2 rbc/hpf (0-2); UROBILINOGEN 0.2 E.U./dl (0.2-1.0); WBC 0-2 wbc/hpf (0-5)
[2020-03-25 20:56] LABS: LDH 261 U/L (87-241)
[2020-03-25 21:02] LABS: ABG BASE EXCESS 2.9 mmol/L (-2.0-2.0)
[2020-03-25 21:07] LABS: ARTERIAL BLOOD GAS PH 7.191 (7.35-7.45)
[2020-03-25 23:49] LABS: ABG BASE EXCESS 3.3 mmol/L (-2.0-2.0); ARTERIAL BLOOD GAS PH 7.259 (7.35-7.45)
[2020-03-26] VITALS (12 sets, daily range): BP systolic 96–116; BP diastolic 53–70
[2020-03-26 06:24] LABS: ABG BASE EXCESS 4.3 mmol/L (-2.0-2.0); ARTERIAL BLOOD GAS PH 7.346 (7.35-7.45)
[2020-03-26 06:25] LABS: BASO % 0.2 % (0.0-1.0); EOS # 0.1 10*3/uL (0.0-0.4); EOS % 1.2 % (1.0-4.0); HEMATOCRIT 43.7 % (42.0-52.0); LYMPH # 1.2 10*3/uL (1.3-4.4); LYMPH % 12.3 % (27.0-41.0); MEAN CELL VOLUME 83.9 fl (80.0-94.0); MEAN CORPUSCULAR HGB 24.2 pg (27.0-31.0); MEAN CORPUSCULAR HGB CONC 28.8 g/dl (33.0-37.0); MEAN PLATELET VOLUME 10.3 fl (9.6-12.3); MONO # 1.4 10*3/uL (0.1-1.0); MONO % 14.2 % (3.0-9.0); NEUT # 7.1 10*3/uL (2.3-7.9); NEUT % 71.8 % (47.0-73.0); PLATELET COUNT AUTOMATED 205 10*3/uL (130-400); RED BLOOD COUNT 5.21 10*6/uL (4.50-5.90); RED CELL DISTRI WIDTH 17.7 % (0-14.5); WHITE BLOOD COUNT 9.9 10*3/uL (4.8-10.8)
[2020-03-26 07:05] LABS: ALBUMIN 2.4 gm/dl (3.1-4.5); ALKALINE PHOSPHATASE 67 U/L (45-117); BUN 13 mg/dl (7-24); CHLORIDE 105 mmol/L (98-107); CPK 141 U/L (39-308); CREATININE 0.67 mg/dL (0.70-1.30); POTASSIUM 4.6 mmol/L (3.5-5.1); SGOT/AST 18 IU/L (3-35); SGPT/ALT 25 U/L (12-78); SODIUM 139 mmol/L (136-145); TOTAL PROTEIN 5.7 gm/dL (6.4-8.2)
[2020-03-26 13:30] LABS: ARTERIAL BLOOD GAS PH 7.315 (7.35-7.45)
[2020-03-26] MEDS ORDERED: COUMADIN5 M2 PO (15:35)
[2020-03-26] MEDS ORDERED: CRESTOR20 M1 PO (15:36)
[2020-03-26] MEDS ORDERED: PREGABALIN75 MG PO (15:37)
[2020-03-26] MEDS ORDERED: PROVENTIL HFA6.7 GM INH (15:38)
[2020-03-26] MEDS ORDERED: EUCERIN ORIGIN250 ML T (15:39)
[2020-03-26] MEDS ORDERED: ONCE-DAILY WEL300 MG PO (15:41)
[2020-03-26] MEDS ORDERED: BUSPIRONE10 MG PO (15:43)
[2020-03-27] VITALS (12 sets, daily range): BP systolic 99–129; BP diastolic 57–79
[2020-03-27 05:30] LABS: ABG BASE EXCESS 4.6 mmol/L (-2.0-2.0); ARTERIAL BLOOD GAS PH 7.328 (7.35-7.45)
[2020-03-27 06:06] LABS: ALBUMIN 2.5 gm/dl (3.1-4.5); ALKALINE PHOSPHATASE 63 U/L (45-117); BUN 14 mg/dl (7-24); CHLORIDE 103 mmol/L (98-107); POTASSIUM 4.5 mmol/L (3.5-5.1); SGOT/AST 19 IU/L (3-35); SGPT/ALT 23 U/L (12-78); SODIUM 136 mmol/L (136-145); TOTAL PROTEIN 6.2 gm/dL (6.4-8.2)
[2020-03-27 06:09] LABS: CPK 99 U/L (39-308)
[2020-03-27 06:13] LABS: HEMATOCRIT 44.7 % (42.0-52.0); LYMPH # 0.4 10*3/uL (1.3-4.4); LYMPH % 5.7 % (27.0-41.0); MEAN CELL VOLUME 82.5 fl (80.0-94.0); MEAN CORPUSCULAR HGB CONC 29.1 g/dl (33.0-37.0); MEAN PLATELET VOLUME 10.4 fl (9.6-12.3); MONO # 0.4 10*3/uL (0.1-1.0); MONO % 6.4 % (3.0-9.0); NEUT # 5.8 10*3/uL (2.3-7.9); NEUT % 87.6 % (47.0-73.0); PLATELET COUNT AUTOMATED 225 10*3/uL (130-400); RED BLOOD COUNT 5.42 10*6/uL (4.50-5.90); RED CELL DISTRI WIDTH 17.2 % (0-14.5); WHITE BLOOD COUNT 6.6 10*3/uL (4.8-10.8)
[2020-03-27 06:51] LABS: ABG BASE EXCESS 4.4 mmol/L (-2.0-2.0); ARTERIAL BLOOD GAS PH 7.348 (7.35-7.45)
[2020-03-27 07:08] LABS: HEP B CORE AB, IGM Negative (Negative); HEPATITIS B SURFACE AG Negative (Negative); HEPATITIS C AB <0.1 (0.0-0.9); HEPATITIS C VIRUS ANTIBODY <0.1 s/co (0.0-0.9)
[2020-03-27] MEDS ORDERED: MELATONIN3 M3 PO (11:17)
[2020-03-27] MEDS ORDERED: TADALAFIL5 M1 PO (11:20)
[2020-03-27 13:41] LABS: INTERNATIONAL NORM RATIO 1.2 (2.0-3.5)
[2020-03-28] VITALS (13 sets, daily range): BP systolic 99–112; BP diastolic 53–65
[2020-03-28 05:51] LABS: ALBUMIN 2.5 gm/dl (3.1-4.5); ALKALINE PHOSPHATASE 58 U/L (45-117); BUN 16 mg/dl (7-24); CHLORIDE 102 mmol/L (98-107); CREATININE 0.52 mg/dL (0.70-1.30); POTASSIUM 4.3 mmol/L (3.5-5.1); SGOT/AST 20 IU/L (3-35); SGPT/ALT 22 U/L (12-78); SODIUM 137 mmol/L (136-145); TOTAL PROTEIN 6.2 gm/dL (6.4-8.2); TRIGLYCERIDES 141 mg/dl (<150)
[2020-03-28 05:55] LABS: PREALBUMIN 13 mg/dl (20-40)
[2020-03-28 05:56] LABS: CPK 39 U/L (39-308)
[2020-03-28 05:57] LABS: BASO % 0.1 % (0.0-1.0); EOS % 0.3 % (1.0-4.0); HEMATOCRIT 43.5 % (42.0-52.0); LYMPH # 0.6 10*3/uL (1.3-4.4); LYMPH % 7.5 % (27.0-41.0); MEAN CELL VOLUME 81.8 fl (80.0-94.0); MEAN CORPUSCULAR HGB 23.9 pg (27.0-31.0); MEAN CORPUSCULAR HGB CONC 29.2 g/dl (33.0-37.0); MEAN PLATELET VOLUME 9.9 fl (9.6-12.3); MONO # 0.5 10*3/uL (0.1-1.0); MONO % 6.9 % (3.0-9.0); NEUT # 6.6 10*3/uL (2.3-7.9); NEUT % 84.9 % (47.0-73.0); PLATELET COUNT AUTOMATED 227 10*3/uL (130-400); RED BLOOD COUNT 5.32 10*6/uL (4.50-5.90); RED CELL DISTRI WIDTH 17.2 % (0-14.5); WHITE BLOOD COUNT 7.8 10*3/uL (4.8-10.8)
[2020-03-28 06:45] LABS: INTERNATIONAL NORM RATIO 1.2 (2.0-3.5)
[2020-03-28 08:35] LABS: ABG BASE EXCESS 9.8 mmol/L (-2.0-2.0); ARTERIAL BLOOD GAS PH 7.432 (7.35-7.45)
[2020-03-28 09:09] LABS: ARTERIAL BLOOD GAS PH 7.413 (7.35-7.45)
[2020-03-28 12:36] LABS: ARTERIAL BLOOD GAS PH 7.416 (7.35-7.45)
[2020-03-29] VITALS (12 sets, daily range): BP systolic 101–120; BP diastolic 53–70
[2020-03-29 07:43] LABS: ABG BASE EXCESS 7.8 mmol/L (-2.0-2.0); ARTERIAL BLOOD GAS PH 7.385 (7.35-7.45)
[2020-03-29 07:49] LABS: BASO % 0.2 % (0.0-1.0); EOS % 0.2 % (1.0-4.0); HEMATOCRIT 43.3 % (42.0-52.0); LYMPH # 0.7 10*3/uL (1.3-4.4); LYMPH % 11.1 % (27.0-41.0); MEAN CORPUSCULAR HGB 24.8 pg (27.0-31.0); MEAN CORPUSCULAR HGB CONC 30.3 g/dl (33.0-37.0); MEAN PLATELET VOLUME 9.9 fl (9.6-12.3); MONO # 0.6 10*3/uL (0.1-1.0); NEUT # 4.9 10*3/uL (2.3-7.9); PLATELET COUNT AUTOMATED 213 10*3/uL (130-400); RED BLOOD COUNT 5.28 10*6/uL (4.50-5.90); RED CELL DISTRI WIDTH 17.4 % (0-14.5); WHITE BLOOD COUNT 6.1 10*3/uL (4.8-10.8)
[2020-03-29 08:08] LABS: ALBUMIN 2.5 gm/dl (3.1-4.5); ALKALINE PHOSPHATASE 56 U/L (45-117); BUN 18 mg/dl (7-24); CHLORIDE 98 mmol/L (98-107); CREATININE 0.47 mg/dL (0.70-1.30); POTASSIUM 4.4 mmol/L (3.5-5.1); SGOT/AST 21 IU/L (3-35); SODIUM 136 mmol/L (136-145); TOTAL PROTEIN 6.2 gm/dL (6.4-8.2)
[2020-03-29 08:09] LABS: SGPT/ALT 24 U/L (12-78)
[2020-03-29 09:10] LABS: INTERNATIONAL NORM RATIO 1.2 (2.0-3.5)
[2020-03-29 09:18] LABS: TRIGLYCERIDES 218 mg/dl (<150)
[2020-03-29 11:52] LABS: ABG BASE EXCESS 8.2 mmol/L (-2.0-2.0); ARTERIAL BLOOD GAS PH 7.415 (7.35-7.45)
[2020-03-30] VITALS (12 sets, daily range): BP systolic 104–138; BP diastolic 53–80
[2020-03-30 04:29] LABS: BASO % 0.2 % (0.0-1.0); EOS % 0.3 % (1.0-4.0); HEMATOCRIT 45.9 % (42.0-52.0); LYMPH % 15.5 % (27.0-41.0); MEAN CELL VOLUME 80.7 fl (80.0-94.0); MEAN CORPUSCULAR HGB 23.9 pg (27.0-31.0); MEAN CORPUSCULAR HGB CONC 29.6 g/dl (33.0-37.0); MEAN PLATELET VOLUME 9.5 fl (9.6-12.3); MONO # 0.7 10*3/uL (0.1-1.0); MONO % 11.1 % (3.0-9.0); NEUT # 4.4 10*3/uL (2.3-7.9); NEUT % 72.7 % (47.0-73.0); PLATELET COUNT AUTOMATED 214 10*3/uL (130-400); RED BLOOD COUNT 5.69 10*6/uL (4.50-5.90); WHITE BLOOD COUNT 6.1 10*3/uL (4.8-10.8)
[2020-03-30 04:45] LABS: INTERNATIONAL NORM RATIO 1.2 (2.0-3.5)
[2020-03-30 04:56] LABS: ALBUMIN 2.8 gm/dl (3.1-4.5); ALKALINE PHOSPHATASE 60 U/L (45-117); BUN 21 mg/dl (7-24); CHLORIDE 99 mmol/L (98-107); CREATININE 0.57 mg/dL (0.70-1.30); POTASSIUM 4.1 mmol/L (3.5-5.1); SGOT/AST 22 IU/L (3-35); SGPT/ALT 31 U/L (12-78); SODIUM 140 mmol/L (136-145); TOTAL PROTEIN 6.6 gm/dL (6.4-8.2); TRIGLYCERIDES 160 mg/dl (<150)
[2020-03-30 07:21] LABS: ABG BASE EXCESS 9.2 mmol/L (-2.0-2.0); ARTERIAL BLOOD GAS PH 7.42 (7.35-7.45)
[2020-03-31] VITALS (10 sets, daily range): BP systolic 102–145; BP diastolic 59–79
[2020-03-31 06:01] LABS: ALBUMIN 2.8 gm/dl (3.1-4.5); ALKALINE PHOSPHATASE 66 U/L (45-117); BUN 28 mg/dl (7-24); CHLORIDE 101 mmol/L (98-107); POTASSIUM 3.8 mmol/L (3.5-5.1); SGOT/AST 34 IU/L (3-35); SGPT/ALT 47 U/L (12-78); SODIUM 141 mmol/L (136-145); TOTAL PROTEIN 6.7 gm/dL (6.4-8.2)
[2020-03-31 06:18] LABS: BASO % 0.4 % (0.0-1.0); EOS # 0.1 10*3/uL (0.0-0.4); EOS % 1.3 % (1.0-4.0); HEMATOCRIT 48.4 % (42.0-52.0); LYMPH # 1.8 10*3/uL (1.3-4.4); LYMPH % 21.9 % (27.0-41.0); MEAN CELL VOLUME 81.3 fl (80.0-94.0); MEAN CORPUSCULAR HGB 23.7 pg (27.0-31.0); MEAN CORPUSCULAR HGB CONC 29.1 g/dl (33.0-37.0); MEAN PLATELET VOLUME 10.2 fl (9.6-12.3); MONO % 12.1 % (3.0-9.0); NEUT # 5.4 10*3/uL (2.3-7.9); NEUT % 63.8 % (47.0-73.0); PLATELET COUNT AUTOMATED 236 10*3/uL (130-400); RED BLOOD COUNT 5.95 10*6/uL (4.50-5.90); RED CELL DISTRI WIDTH 18.1 % (0-14.5); WHITE BLOOD COUNT 8.4 10*3/uL (4.8-10.8)
[2020-03-31 07:38] LABS: ABG BASE EXCESS 8.9 mmol/L (-2.0-2.0); ARTERIAL BLOOD GAS PH 7.384 (7.35-7.45)
[2020-03-31 16:03] LABS: ARTERIAL BLOOD GAS PH 7.404 (7.35-7.45)
[2020-03-31 19:00] LABS: INTERNATIONAL NORM RATIO 1.4 (2.0-3.5)
[2020-03-31 19:45] LABS: ABG BASE EXCESS 7.9 mmol/L (-2.0-2.0); ARTERIAL BLOOD GAS PH 7.399 (7.35-7.45)
[2020-04-01] VITALS: BP 155/87
[2020-04-01 04:00] VITALS: BP 143/81
[2020-04-01 05:40] LABS: ALBUMIN 3.2 gm/dl (3.1-4.5); ALKALINE PHOSPHATASE 74 U/L (45-117); CHLORIDE 104 mmol/L (98-107); CREATININE 0.56 mg/dL (0.70-1.30); POTASSIUM 3.7 mmol/L (3.5-5.1); SGOT/AST 58 IU/L (3-35); SGPT/ALT 55 U/L (12-78); SODIUM 138 mmol/L (136-145); TOTAL PROTEIN 7.1 gm/dL (6.4-8.2)
[2020-04-01 05:47] LABS: BUN 17 mg/dl (7-24)
[2020-04-01 06:19] LABS: BASO % 0.3 % (0.0-1.0); EOS # 0.1 10*3/uL (0.0-0.4); EOS % 1.2 % (1.0-4.0); HEMATOCRIT 50.4 % (42.0-52.0); LYMPH % 8.9 % (27.0-41.0); MEAN CELL VOLUME 81.4 fl (80.0-94.0); MEAN CORPUSCULAR HGB 23.7 pg (27.0-31.0); MEAN CORPUSCULAR HGB CONC 29.2 g/dl (33.0-37.0); MEAN PLATELET VOLUME 11.1 fl (9.6-12.3); MONO # 1.3 10*3/uL (0.1-1.0); MONO % 11.5 % (3.0-9.0); NEUT # 8.8 10*3/uL (2.3-7.9); NEUT % 77.7 % (47.0-73.0); PLATELET COUNT AUTOMATED 239 10*3/uL (130-400); RED BLOOD COUNT 6.19 10*6/uL (4.50-5.90); WHITE BLOOD COUNT 11.3 10*3/uL (4.8-10.8)
[2020-04-01 08:00] VITALS: BP 119/52
[2020-04-01 09:58] LABS: ABG BASE EXCESS 7.1 mmol/L (-2.0-2.0); ARTERIAL BLOOD GAS PH 7.42 (7.35-7.45)
[2020-04-01 13:02] VITALS: BP 127/62
[2020-04-01 16:00] VITALS: BP 120/68
[2020-04-01 20:00] VITALS: BP 112/68
[2020-04-02] VITALS: BP 119/75
[2020-04-02 04:00] VITALS: BP 111/66
[2020-04-02 05:51] LABS: ALBUMIN 3.2 gm/dl (3.1-4.5); ALKALINE PHOSPHATASE 69 U/L (45-117); BUN 21 mg/dl (7-24); CHLORIDE 103 mmol/L (98-107); POTASSIUM 3.5 mmol/L (3.5-5.1); SGOT/AST 40 IU/L (3-35); SGPT/ALT 51 U/L (12-78); SODIUM 139 mmol/L (136-145)
[2020-04-02 06:42] LABS: INTERNATIONAL NORM RATIO 1.4 (2.0-3.5)
[2020-04-02 06:44] LABS: BASO # 0.1 10*3/uL (0.0-0.1); BASO % 0.6 % (0.0-1.0); EOS # 0.1 10*3/uL (0.0-0.4); EOS % 1.2 % (1.0-4.0); HEMATOCRIT 50.4 % (42.0-52.0); LYMPH # 1.4 10*3/uL (1.3-4.4); LYMPH % 13.2 % (27.0-41.0); MEAN CORPUSCULAR HGB 23.7 pg (27.0-31.0); MEAN CORPUSCULAR HGB CONC 29.6 g/dl (33.0-37.0); MEAN PLATELET VOLUME 10.7 fl (9.6-12.3); MONO # 1.2 10*3/uL (0.1-1.0); MONO % 11.3 % (3.0-9.0); NEUT # 7.8 10*3/uL (2.3-7.9); NEUT % 72.9 % (47.0-73.0); PLATELET COUNT AUTOMATED 264 10*3/uL (130-400); RED CELL DISTRI WIDTH 18.4 % (0-14.5); WHITE BLOOD COUNT 10.7 10*3/uL (4.8-10.8)
[2020-04-02 08:00] VITALS: BP 135/82
[2020-04-02 12:00] VITALS: BP 128/86
[2020-04-02 16:00] VITALS: BP 113/60
[2020-04-02 20:00] VITALS: BP 106/60
[2020-04-03] VITALS: BP 114/58
[2020-04-03 06:23] LABS: BASO % 0.3 % (0.0-1.0); EOS # 0.1 10*3/uL (0.0-0.4); EOS % 0.8 % (1.0-4.0); HEMATOCRIT 52.3 % (42.0-52.0); LYMPH # 1.7 10*3/uL (1.3-4.4); LYMPH % 15.7 % (27.0-41.0); MEAN CORPUSCULAR HGB 23.4 pg (27.0-31.0); MEAN CORPUSCULAR HGB CONC 29.3 g/dl (33.0-37.0); MEAN PLATELET VOLUME 11.2 fl (9.6-12.3); MONO # 1.3 10*3/uL (0.1-1.0); MONO % 11.9 % (3.0-9.0); NEUT # 7.7 10*3/uL (2.3-7.9); NEUT % 70.6 % (47.0-73.0); PLATELET COUNT AUTOMATED 281 10*3/uL (130-400); RED BLOOD COUNT 6.54 10*6/uL (4.50-5.90); RED CELL DISTRI WIDTH 18.6 % (0-14.5); WHITE BLOOD COUNT 10.9 10*3/uL (4.8-10.8)
[2020-04-03 06:51] LABS: BUN 23 mg/dl (7-24); CHLORIDE 104 mmol/L (98-107); POTASSIUM 3.5 mmol/L (3.5-5.1); SODIUM 140 mmol/L (136-145)
[2020-04-03 07:14] LABS: INTERNATIONAL NORM RATIO 1.6 (2.0-3.5)
[2020-04-03 08:00] VITALS: BP 107/60
[2020-04-03 12:00] VITALS: BP 101/68
[2020-04-03 16:00] VITALS: BP 97/61
[2020-04-03 20:00] VITALS: BP 105/54
[2020-04-04] VITALS: BP 124/66
[2020-04-04 05:47] LABS: BUN 18 mg/dl (7-24); CHLORIDE 104 mmol/L (98-107); CREATININE 0.59 mg/dL (0.70-1.30); POTASSIUM 3.5 mmol/L (3.5-5.1); SODIUM 139 mmol/L (136-145)
[2020-04-04 06:21] LABS: INTERNATIONAL NORM RATIO 2.1 (2.0-3.5)
[2020-04-04 06:23] LABS: BASO # 0.1 10*3/uL (0.0-0.1); BASO % 0.5 % (0.0-1.0); EOS # 0.1 10*3/uL (0.0-0.4); EOS % 0.7 % (1.0-4.0); HEMATOCRIT 49.3 % (42.0-52.0); LYMPH # 2.2 10*3/uL (1.3-4.4); LYMPH % 21.1 % (27.0-41.0); MEAN CELL VOLUME 80.6 fl (80.0-94.0); MEAN CORPUSCULAR HGB 23.7 pg (27.0-31.0); MEAN CORPUSCULAR HGB CONC 29.4 g/dl (33.0-37.0); MEAN PLATELET VOLUME 11.7 fl (9.6-12.3); MONO # 1.2 10*3/uL (0.1-1.0); MONO % 11.3 % (3.0-9.0); NEUT # 6.7 10*3/uL (2.3-7.9); NEUT % 65.5 % (47.0-73.0); PLATELET COUNT AUTOMATED 267 10*3/uL (130-400); RED BLOOD COUNT 6.12 10*6/uL (4.50-5.90); RED CELL DISTRI WIDTH 18.3 % (0-14.5); WHITE BLOOD COUNT 10.2 10*3/uL (4.8-10.8)
[2020-04-04 08:00] VITALS: BP 125/61
[2020-04-04 12:00] VITALS: BP 126/60
[2020-04-04] MEDS ORDERED: PREGABALIN75 MG PO (12:17)
[2020-04-04] MEDS ORDERED: PANTOPRAZOLE SO40 MG PO (12:17)
== END 2020-04-04 15:52 | disposition other institution (70) | DRG 870 ==
LOC: ED 15:31 → 4NE 19:16 → EDHOLD 19:16 → 4NE 20:12 → ICCU 03-28 11:53
PROVIDERS: Emergency Medicine; Internal Medicine; Internal Medicine Critical Care Medicine; Student in an Organized Health Care Education/Training Program; ADMIT Family Medicine
PROC: 0BH18EZ Insertion of Endotracheal Airway into Trachea, Via Natural or Artificial Opening Endoscopic (ICD-10-PCS; principal; 2020-03-25)
PROC: 5A1955Z Respiratory Ventilation, Greater than 96 Consecutive Hours (ICD-10-PCS; principal; 2020-03-25)
PROC: 5A09357 Assistance with Respiratory Ventilation, Less than 24 Consecutive Hours, Continuous Positive Airway Pressure (ICD-10-PCS; principal; 2020-03-25)
PROC: 5A09357 Assistance with Respiratory Ventilation, Less than 24 Consecutive Hours, Continuous Positive Airway Pressure (ICD-10-PCS; 2020-03-31)
PROC: 5A09357 Assistance with Respiratory Ventilation, Less than 24 Consecutive Hours, Continuous Positive Airway Pressure (ICD-10-PCS; 2020-04-01)
PROC: 5A09357 Assistance with Respiratory Ventilation, Less than 24 Consecutive Hours, Continuous Positive Airway Pressure (ICD-10-PCS; 2020-04-02)
DX: A41.9 Sepsis, unspecified organism (principal); J96.21 Acute and chronic respiratory failure with hypoxia; J69.0 Pneumonitis due to inhalation of food and vomit; J96.22 Acute and chronic respiratory failure with hypercapnia; E44.0 Moderate protein-calorie malnutrition; L03.115 Cellulitis of right lower limb; L03.116 Cellulitis of left lower limb; J44.1 Chronic obstructive pulmonary disease with (acute) exacerbation; D68.59 Other primary thrombophilia; E87.3 Alkalosis; Z20.828 Contact with and (suspected) exposure to other viral communicable diseases; I95.9 Hypotension, unspecified; D64.9 Anemia, unspecified; R73.9 Hyperglycemia, unspecified; E83.41 Hypermagnesemia; I49.9 Cardiac arrhythmia, unspecified; G62.9 Polyneuropathy, unspecified; F17.210 Nicotine dependence, cigarettes, uncomplicated; G89.29 Other chronic pain; M54.9 Dorsalgia, unspecified; E66.01 Morbid (severe) obesity due to excess calories; I87.8 Other specified disorders of veins; K59.00 Constipation, unspecified; J40 Bronchitis, not specified as acute or chronic; I25.2 Old myocardial infarction; Z68.31 Body mass index [BMI] 31.0-31.9, adult; Z79.01 Long term (current) use of anticoagulants; Z88.0 Allergy status to penicillin; Z79.82 Long term (current) use of aspirin; Z79.899 Other long term (current) drug therapy; Z86.711 Personal history of pulmonary embolism